=== PATIENT | male | born 1950 | race Asian ===

== ENCOUNTER 2023-09-06 06:40 | Inpatient (IN) | payer BC, MEDICARE ==
[2023-09-06] VITALS (13 sets, daily range): BP systolic 108–148; BP diastolic 48–75; PULSE 87–94; RESP 16–22; TEMP 98–98.4
[~2023-09-06] VITALS: Ht 162.6 cm; Wt 65.5 kg
[2023-09-06] MEDS: FUROSEMIDE 40 MG/4 ML VIAL IVP ONE (06:56)
[2023-09-06 07:00] LABS: BASOPHILS % (AUTO) 0.4 % (0.0-2.0); EOSINOPHILS % (AUTO) 1.3 % (1.0-6.0); HEMATOCRIT 25.3 % (41-53); HEMOGLOBIN 8.2 g/dL (13.5-17.5); LYMPHOCYTES # (AUTO) 1.4 K/uL (1.0-4.8); LYMPHOCYTES % (AUTO) 10.2 % (22.0-44.0); MEAN CORPUSCULAR HEMOGLOBIN 33.6 pg (26.0-34.0); MEAN CORPUSCULAR HGB CONC 32.6 G/dL (31.0-37.0); MEAN CORPUSCULAR VOLUME 103 fL (80-100); MONOCYTES # (AUTO) 0.8 K/uL (0.1-1.0); MONOCYTES % (AUTO) 5.7 % (2.0-9.0); NEUTROPHILS # (AUTO) 11.2 K/uL (1.8-7.7); NEUTROPHILS % (AUTO) 82.4 % (40.0-70.0); PLATELET COUNT (AUTO) 224 K/uL (150-450); RED BLOOD CELL COUNT(AUTO) 2.45 MIL/uL (4.50-5.90); RED CELL DISTRIBUTION WIDTH 13.5 % (11.5-14.5); WHITE BLOOD COUNT (AUTO) 13.6 K/uL (4.5-11.0)
[2023-09-06 07:10] LABS: ANION GAP 15 mmol/L (8-16); CALCIUM, TOTAL 9.9 mg/dL (8.8-10.5); CARBON DIOXIDE 24 mmol/L (22-29); CHLORIDE 95 mmol/L (98-107); CREATININE 8.39 mg/dL (0.60-1.30); GLOMERULAR FILTR. RATE CALC 6 mL/min (>60); GLUCOSE,RANDOM 341 mg/dL (70-110); POTASSIUM 4.4 mmol/L (3.5-5.1); SODIUM SERUM 134 mmol/L (136-145); UREA NITROGEN, BLOOD 76 mg/dL (7-18)
[2023-09-06 07:20] LABS: TROPONIN I-HIGH SENSITIVITY 1087 ng/L (<76)
[2023-09-06] MEDS ORDERED: AMLO-258 PO (07:20)
[2023-09-06] MEDS ORDERED: SEVE800T38 PO (07:20)
[2023-09-06] MEDS ORDERED: GLIP5TAB97 PO (07:20)
[2023-09-06] MEDS ORDERED: ATOR40TA28 PO (07:20)
[2023-09-06] MEDS ORDERED: FOLI0.8T43 PO (07:20)
[2023-09-06] MEDS ORDERED: ASPI-1444 PO (07:20)
[2023-09-06] MEDS ORDERED: PANT-31 PO (07:20)
[2023-09-06] MEDS ORDERED: CARV12 PO (07:20)
[2023-09-06 07:21] LABS: ALANINE AMINOTRANSFERASE 28 U/L (12-78); ALBUMIN 3.6 g/dL (3.4-5.0); ALKALINE PHOSPHATASE 91 U/L (46-116); ASPARTATE AMINOTRANSFERASE 20 U/L (15-37); B-TYPE NATRIURETIC PEPTIDE 2490 pg/mL (0-100); BILIRUBIN,TOTAL 0.3 mg/dL (0.1-1.0); LIPASE 73 U/L (16-77); TOTAL PROTEIN, SERUM 7.3 g/dL (6.4-8.2)
[2023-09-06 07:31] LABS: LACTIC ACID 2.8 mmol/L (0.4-2.0)
[2023-09-06 07:39] LABS: RBC MORPHOLOGY COMMENT ABNORMAL RBC MORPH
[2023-09-06] MEDS: ASPIRIN 325 MG TABLET PO ONE (07:39)
[2023-09-06 09:37] LABS: TROPONIN I-HIGH SENSITIVITY 1096 ng/L (<76)
[2023-09-06] MEDS: OXYGEN THERAPY IH SCH (09:56)
[2023-09-06] MEDS ORDERED: ZOLPIDEM TARTRATE 5 MG TABLET PO PRN (12:00)
[2023-09-06] MEDS ORDERED: MAGNESIUM HYDROXIDE SUSPENSION 30 ML UDCUP PO PRN (12:00)
[2023-09-06] MEDS ORDERED: MORPHINE SULFATE 2 MG/ML SYRINGE IVP PRN (12:00)
[2023-09-06] MEDS ORDERED: IPRATROPIUM BROMIDE 0.5 MG/2.5 ML NEB SOLUTION NEB PRN (12:00)
[2023-09-06] MEDS ORDERED: ONDANSETRON HCL 4 MG/2 ML VIAL IVP PRN (12:00)
[2023-09-06] MEDS ORDERED: ALBUTEROL SULFATE 2.5 MG/0.5 ML NEB SOLUTION NEB PRN (12:00)
[2023-09-06] MEDS ORDERED: HYDROCODONE/ACETAMINOPHEN 5-325 MG TABLET PO PRN (12:00)
[2023-09-06] MEDS ORDERED: BISACODYL 10 MG RECTAL RECTAL SUPPOSITORY PR PRN (12:00)
[2023-09-06] MEDS ORDERED: ACETAMINOPHEN 325 MG TABLET PO PRN (12:00)
[2023-09-06] MEDS ORDERED: GLIP5TAB15 PO (12:13)
[2023-09-06] MEDS: SEVELAMER CARBONATE 800 MG TABLET PO SCH (14:26)
[2023-09-06] MEDS: AmLODIPine BESYLATE 10 MG TABLET PO SCH (14:26)
[2023-09-06] MEDS: EPOETIN ALFA 10,000 UNITS/ML VIAL SQ SCH (16:16)
[2023-09-06] MEDS: HEPARIN SODIUM,PORCINE 5,000 UNITS/ML VIAL SQ SCH (16:18)
[2023-09-06] MEDS: BUMETANIDE 0.25 MG/ML 4 ML VIAL IVP ONE (16:19)
[2023-09-06 17:22] LABS: GLUCOMETER DEV NAME(LOC) 5N.2C; GLUCOSE,POINT OF CARE 250 MG/DL (70-110)
[2023-09-06] MEDS: INSULIN LISPRO 100 UNITS/ML SQ PRN (17:58)
[2023-09-06] MEDS ORDERED: DEXTROSE 50%-WATER 25 GM/50 ML SYRINGE IVP PRN (18:00)
[2023-09-06 19:28] LABS: BASOPHILS % (AUTO) 0.3 % (0.0-2.0); EOSINOPHILS % (AUTO) 0.9 % (1.0-6.0); HEMATOCRIT 25.3 % (41-53); HEMOGLOBIN 8.4 g/dL (13.5-17.5); LYMPHOCYTES # (AUTO) 0.6 K/uL (1.0-4.8); LYMPHOCYTES % (AUTO) 5.3 % (22.0-44.0); MEAN CORPUSCULAR HEMOGLOBIN 33.9 pg (26.0-34.0); MEAN CORPUSCULAR HGB CONC 33.4 G/dL (31.0-37.0); MEAN CORPUSCULAR VOLUME 102 fL (80-100); MONOCYTES # (AUTO) 0.7 K/uL (0.1-1.0); NEUTROPHILS # (AUTO) 10.7 K/uL (1.8-7.7); PLATELET COUNT (AUTO) 221 K/uL (150-450); RED BLOOD CELL COUNT(AUTO) 2.49 MIL/uL (4.50-5.90); RED CELL DISTRIBUTION WIDTH 13.1 % (11.5-14.5); WHITE BLOOD COUNT (AUTO) 12.2 K/uL (4.5-11.0)
[2023-09-06 19:32] LABS: NEUTROPHILS % (AUTO) 87.5 % (40.0-70.0)
[2023-09-06 20:02] LABS: TROPONIN I-HIGH SENSITIVITY 1477 ng/L (<76)
[2023-09-06 20:05] LABS: GLUCOMETER DEV NAME(LOC) 5S.2C; GLUCOSE,POINT OF CARE 157 MG/DL (70-110)
[2023-09-06 20:06] LABS: RBC MORPHOLOGY COMMENT ABNORMAL RBC MORPH
[2023-09-06] MEDS: ATORVASTATIN CALCIUM 40 MG TABLET PO SCH (21:16)
[2023-09-06] MEDS: DOCUSATE SODIUM 100 MG CAPSULE PO SCH (21:16)
[2023-09-06] MEDS: CARVEDILOL 12.5 MG TABLET PO SCH (21:16)
[2023-09-06] MEDS ORDERED: HEPARIN SODIUM,PORCINE 5,000 UNITS/ML VIAL IVP PRN ×2 (21:30)
[2023-09-06 22:27] LABS: PROTHROMBIN TIME 10.3 SEC (9.4-11.6)
[2023-09-07] VITALS (25 sets, daily range): BP systolic 92–154; BP diastolic 46–82; PULSE 56–90; RESP 18–20; TEMP 98–98.3
[2023-09-07] MEDS: HEPARIN SODIUM 25000 UNITS/D5W 250 ML IV PRN (01:03)
[2023-09-07 01:36] LABS: GLUCOMETER DEV NAME(LOC) 5N.2C; GLUCOSE,POINT OF CARE 100 MG/DL (70-110)
[2023-09-07 06:02] LABS: GLUCOMETER DEV NAME(LOC) 5S.1B; GLUCOSE,POINT OF CARE 169 MG/DL (70-110)
[2023-09-07] MEDS ORDERED: PANTOPRAZOLE SODIUM 40 MG DR TABLET PO SCH (06:30)
[2023-09-07] MEDS ORDERED: GlipiZIDE 5 MG TABLET PO SCH (06:30)
[2023-09-07 06:54] LABS: BASOPHILS % (AUTO) 0.4 % (0.0-2.0); HEMATOCRIT 24.2 % (41-53); HEMOGLOBIN 8.1 g/dL (13.5-17.5); LYMPHOCYTES % (AUTO) 9.9 % (22.0-44.0); MEAN CORPUSCULAR HEMOGLOBIN 34.1 pg (26.0-34.0); MEAN CORPUSCULAR HGB CONC 33.3 G/dL (31.0-37.0); MEAN CORPUSCULAR VOLUME 103 fL (80-100); NEUTROPHILS # (AUTO) 7.5 K/uL (1.8-7.7); NEUTROPHILS % (AUTO) 77.7 % (40.0-70.0); PLATELET COUNT (AUTO) 213 K/uL (150-450); RED BLOOD CELL COUNT(AUTO) 2.36 MIL/uL (4.50-5.90); RED CELL DISTRIBUTION WIDTH 13.3 % (11.5-14.5); WHITE BLOOD COUNT (AUTO) 9.6 K/uL (4.5-11.0)
[2023-09-07 07:37] LABS: CALCIUM, TOTAL 9.4 mg/dL (8.8-10.5); CREATININE 4.74 mg/dL (0.60-1.30); POTASSIUM 3.3 mmol/L (3.5-5.1)
[2023-09-07 08:22] LABS: TROPONIN I-HIGH SENSITIVITY 1895 ng/L (<76)
[2023-09-07] MEDS: PERFLUTREN PROTEIN-A MICROSPHERES 0.22 MG/ML 3 ML VIAL IVP ONE (08:38)
[2023-09-07] MEDS: LOSARTAN POTASSIUM 25 MG TABLET PO SCH (09:16)
[2023-09-07] MEDS: FOLIC ACID/VIT B COMPLEX AND C TABLET PO SCH (09:16)
[2023-09-07] MEDS: ASPIRIN 81 MG DR TABLET PO SCH (09:17)
[2023-09-07] MEDS: PANTOPRAZOLE SODIUM 40 MG/VIAL IVP SCH (09:17)
[2023-09-07] MEDS ORDERED: SODIUM CHLORIDE 0.9% 1,000 ML ONE ×2 (09:22→09:23)
[2023-09-07 10:10] LABS: RBC MORPHOLOGY COMMENT ABNORMAL RBC MORPH
[2023-09-07 12:16] LABS: GLUCOMETER DEV NAME(LOC) 5S.1B; GLUCOSE,POINT OF CARE 183 MG/DL (70-110)
[2023-09-07] MEDS ORDERED: IOHEXOL 300 MG/ML 100 ML VIAL ONE (15:42)
[2023-09-07] MEDS ORDERED: HEPARIN SODIUM 1000 UNITS/NS 1,000 ML ONE (15:42)
[2023-09-07] MEDS ORDERED: VERAPAMIL HCL 2.5 MG/ML 2 ML VIAL ONE (15:42)
[2023-09-07] MEDS ORDERED: LIDOCAINE/PF 1% 30 ML VIAL ONE (15:42)
[2023-09-07] MEDS ORDERED: SODIUM BICARBONATE 50 MEQ/50 ML VIAL ONE (15:42)
[2023-09-07] MEDS ORDERED: FentaNYL CITRATE PF 100 MCG/2 ML VIAL ONE (16:42)
[2023-09-07] MEDS ORDERED: MIDAZOLAM HCL 2 MG/2 ML VIAL ONE (16:42)
[2023-09-07] MEDS: IOHEXOL 300 MG/ML 100 ML VIAL IARTER ONE (17:02)
[2023-09-07] MEDS: LIDOCAINE 1% 30 ML/SOD BICARB 8.4% 4 ML SQ ONE (17:02)
[2023-09-07] MEDS: HEPARIN SODIUM 1000 UNITS/NS 1,000 ML IARTER ONE (17:03)
[2023-09-07] MEDS: MIDAZOLAM HCL 2 MG/2 ML VIAL IVP ONE (17:03)
[2023-09-07] MEDS: FentaNYL CITRATE PF 100 MCG/2 ML VIAL IVP ONE (17:04)
[2023-09-07 18:26] LABS: GLUCOMETER DEV NAME(LOC) 5S.1B; GLUCOSE,POINT OF CARE 128 MG/DL (70-110)
[2023-09-07 23:42] LABS: GLUCOMETER DEV NAME(LOC) 5S.2C; GLUCOSE,POINT OF CARE 137 MG/DL (70-110)
[2023-09-08 03:59] VITALS: BP 113/54; PULSE 76; RESP 18; TEMP 98.2
[2023-09-08 07:06] LABS: GLUCOMETER DEV NAME(LOC) 5S.2C; GLUCOSE,POINT OF CARE 172 MG/DL (70-110)
[2023-09-08 07:16] LABS: CALCIUM, TOTAL 9.1 mg/dL (8.8-10.5); CREATININE 4.89 mg/dL (0.60-1.30); POTASSIUM 3.7 mmol/L (3.5-5.1)
[2023-09-08 07:29] LABS: TROPONIN I-HIGH SENSITIVITY 1840 ng/L (<76)
[2023-09-08 08:19] VITALS: BP 106/59; PULSE 74; RESP 18; TEMP 98
[2023-09-08 11:47] VITALS: BP 112/55; PULSE 79; RESP 18; TEMP 97.7
[2023-09-08 15:44] VITALS: BP 127/55; PULSE 81; RESP 18; TEMP 97.9
[2023-09-08 18:56] LABS: GLUCOMETER DEV NAME(LOC) 5S.1B; GLUCOSE,POINT OF CARE 221 MG/DL (70-110)
== END 2023-09-08 16:55 | disposition short-term general hospital (02) | DRG 280 ==
LOC: EMS 06:41 → AHU 07:30 → 5S 09:05
PROVIDERS: ADMIT Hospitalist; ATTEND Hospitalist
PROC: 5A1D70Z Performance of Urinary Filtration, Intermittent, Less than 6 Hours Per Day (ICD-10-PCS; principal; 2023-09-06)
PROC: 5A1D70Z Performance of Urinary Filtration, Intermittent, Less than 6 Hours Per Day (ICD-10-PCS; 2023-09-07)
PROC: 4A023N7 Measurement of Cardiac Sampling and Pressure, Left Heart, Percutaneous Approach (ICD-10-PCS; 2023-09-07)
PROC: B2151ZZ Fluoroscopy of Left Heart using Low Osmolar Contrast (ICD-10-PCS; 2023-09-07)
PROC: B2111ZZ Fluoroscopy of Multiple Coronary Arteries using Low Osmolar Contrast (ICD-10-PCS; 2023-09-07)
PROC: B41F1ZZ Fluoroscopy of Right Lower Extremity Arteries using Low Osmolar Contrast (ICD-10-PCS; 2023-09-07)
DX: I13.2 Hypertensive heart and chronic kidney disease with heart failure and with stage 5 chronic kidney disease, or end stage renal disease (principal); I21.4 Non-ST elevation (NSTEMI) myocardial infarction; I50.23 Acute on chronic systolic (congestive) heart failure; N18.6 End stage renal disease; E11.22 Type 2 diabetes mellitus with diabetic chronic kidney disease; D63.1 Anemia in chronic kidney disease; Z20.822 Contact with and (suspected) exposure to COVID-19; E78.5 Hyperlipidemia, unspecified; Z99.2 Dependence on renal dialysis; I25.10 Atherosclerotic heart disease of native coronary artery without angina pectoris; I25.5 Ischemic cardiomyopathy; E11.65 Type 2 diabetes mellitus with hyperglycemia
CPT/HCPCS: 71045; 80048; 80053; 82962; 83605; 83690; 83880; 84484; 85025; 85610; 85730; 87340; 90935; 93005; 93306; 99291; C8924; C9113; G0378; J0885; J1644; J1940; J2250; J3010; J3490; J7030; Q9967; 36415-L1; 36415-TC; Z7610

== ENCOUNTER 2025-01-25 07:29 | Inpatient (IN) | payer MEDICARE ==
[~2025-01-25] VITALS: Ht 167.6 cm; Wt 57.8 kg
[2025-01-25] VITALS (19 sets, daily range): BP systolic 93–133; BP diastolic 50–58; PULSE 56–89; RESP 18–20; TEMP 96.5–97.5; O2SAT 100
[~2025-01-25 07:29] MED LIST: AMLO-258 PO; ASPI-1444 PO; ATOR40TA28 PO; CARV12 PO; FOLI0.8T43 PO; GLIP5TAB15 PO; PANT-31 PO; SEVE800T39 PO
[2025-01-25] MEDS ORDERED: IOHEXOL 350 MG/ML 100 ML VIAL ONE ×2 (07:41→07:51)
[2025-01-25] MEDS ORDERED: SODIUM CHLORIDE 0.9% 100 ML ONE ×2 (07:41→07:51)
[2025-01-25] MEDS: CALCIUM GLUCONATE 100 MG/ML 10 ML IVP ONE (07:43)
[2025-01-25] MEDS ORDERED: NiCARDipine HCL 25 MG in SODIUM CHLORIDE 0.9% 240 ML IV PRN (07:45)
[2025-01-25] MEDS ORDERED: 0.9% SODIUM CHLORIDE 10 ML SYRINGE IVP ONE (07:51)
[2025-01-25 07:53] LABS: BASOPHILS % (AUTO) 0.2 % (0.0-2.0); EOSINOPHILS % (AUTO) 3.1 % (1.0-6.0); HEMATOCRIT 36.6 % (41-53); LYMPHOCYTES # (AUTO) 3.4 K/uL (1.0-4.8); LYMPHOCYTES % (AUTO) 33.3 % (22.0-44.0); MEAN CORPUSCULAR HEMOGLOBIN 32.7 pg (26.0-34.0); MEAN CORPUSCULAR HGB CONC 32.9 G/dL (31.0-37.0); MEAN CORPUSCULAR VOLUME 99 fL (80-100); MONOCYTES # (AUTO) 0.9 K/uL (0.1-1.0); MONOCYTES % (AUTO) 8.9 % (2.0-9.0); NEUTROPHILS # (AUTO) 5.5 K/uL (1.8-7.7); NEUTROPHILS % (AUTO) 54.5 % (40.0-70.0); PLATELET COUNT (AUTO) 246 K/uL (150-450); RED BLOOD CELL COUNT(AUTO) 3.69 MIL/uL (4.50-5.90); RED CELL DISTRIBUTION WIDTH 16.1 % (11.5-14.5); WHITE BLOOD COUNT (AUTO) 10.2 K/uL (4.5-11.0)
[2025-01-25 08:06] LABS: PROTHROMBIN TIME 10.5 SEC (9.4-11.6)
[2025-01-25 08:09] LABS: CREATININE 7.46 mg/dL (0.60-1.30); POTASSIUM 5.9 mmol/L (3.5-5.1)
[2025-01-25 08:14] LABS: ALBUMIN 3.7 g/dL (3.4-5.0); BILIRUBIN,TOTAL 0.7 mg/dL (0.1-1.0); TOTAL PROTEIN, SERUM 8.1 g/dL (6.4-8.2)
[2025-01-25 08:23] LABS: TROPONIN I-HIGH SENSITIVITY 659 ng/L (<76)
[2025-01-25 08:25] LABS: ALCOHOL, BLOOD (SERUM) < 3 mg/dL (0-10)
[2025-01-25 08:41] LABS: ABG BASE EXCESS -4.2 mmol/L (-2.0-3.0); ABG CARBOXYHEMOGLOBIN 0.4 % (0.5-1.5); ABG HCO3 21.3 mmol/L (21.0-28.0); ABG METHEMOGLOBIN 0.4 % (0.0-1.5); ABG OXYGEN CONTENT 16.4 mL/dL (15.0-23.0); ABG OXYGEN SATURATION 99.6 % (94.0-98.0); ABG OXYHEMOGLOBIN 98.8 % (94.0-98.0); ABG PCO2 39 mmHg (32.0-48.0); ABG PH 7.357 (7.350-7.450); ABG TOTAL HEMOGLOBIN 11.5 G/dL (13.5-17.5); PO2, ARTERIAL BG 190.2 mmHg (83.0-108.0); SOURCE, BLOOD GAS ARTERIAL; TEMPERATURE, FAHRENHEIT, BG 98.9 FAHREN (96.0-98.6)
[2025-01-25 08:42] LABS: ALLEN TEST, BLOOD GAS Positive; O2 DEVICE,BLOOD GAS VENTILATOR (ROOM AIR); PEEP,BG 5 cm H2O; SITE, BLOOD GAS LFT RADIAL; VT, ABG 450 ml
[2025-01-25] MEDS: PROPOFOL 1000 MG/ISO-OSM 100 ML IV PRN ×2 (08:57→14:20)
[2025-01-25 09:16] LABS: APPEARANCE,URINE CLEAR (CLEAR); BILIRUBIN,URINE NEGATIVE (NEGATIVE); COLOR,URINE LIGHT YELLOW (YELLOW); GLUCOSE, URINE (UA) TRACE mg/dL (NEGATIVE); KETONES,URINE NEGATIVE (NEGATIVE); LEUKOCYTE ESTERASE ,URINE NEGATIVE (NEGATIVE); NITRATE,URINE NEGATIVE (NEGATIVE); OCCULT BLOOD,URINE TRACE (NEGATIVE); PROTEIN,URINE 100-200,SEE CONFIRM mg/dL (NEGATIVE); UROBILINOGEN,URINE <=1.0 mg/dL (<=1.0)
[2025-01-25 09:21] LABS: AMPHET/METH SCREEN,URINE NEGATIVE (NEGATIVE); BARBITURATE SCREEN, URINE NEGATIVE (NEGATIVE); BENZODIAZEPINES SCREEN,URINE NEGATIVE (NEGATIVE); CANNABINOID SCREEN,URINE NEGATIVE (NEGATIVE); COCAINE SCREEN,URINE NEGATIVE (NEGATIVE); METHADONE SCREEN, URINE NEGATIVE (NEGATIVE); OPIATE SCREEN,URINE NEGATIVE (NEGATIVE); PHENCYCLIDINE SCREEN,URINE NEGATIVE (NEGATIVE)
[2025-01-25 09:23] LABS: ALCOHOL, URINE DRUG SCREEN NEGATIVE (NEGATIVE)
[2025-01-25 09:41] LABS: RBC,URINE 0-2 /HPF (0-2); SULFOSALICYLIC ACID,URINE 2+ (Negative)
[2025-01-25 09:42] LABS: BACTERIA,URINE None Seen /HPF (None Seen); WBC,URINE None Seen /HPF (0-5)
[2025-01-25] MEDS ORDERED: BISACODYL 10 MG RECTAL RECTAL SUPPOSITORY PR PRN (09:45)
[2025-01-25] MEDS ORDERED: ONDANSETRON HCL 4 MG/2 ML VIAL IVP PRN (09:45)
[2025-01-25] MEDS ORDERED: ACETAMINOPHEN 325 MG TABLET PO PRN (09:45)
[2025-01-25] MEDS: PIPERACILLIN/TAZO 3.375 GM/D5W 50 ML IV ONE (10:41)
[2025-01-25] MEDS: ATORVASTATIN CALCIUM 40 MG TABLET NG SCH (10:41)
[2025-01-25] MEDS: AmLODIPine BESYLATE 5 MG TABLET NG SCH (10:41)
[2025-01-25] MEDS: ASPIRIN 81 MG CHEWABLE TABLET NG SCH (10:41)
[2025-01-25] MEDS: carvediloL 12.5 MG TABLET PEG SCH (10:43)
[2025-01-25] MEDS ORDERED: GLIP2.5T28 PO (11:15)
[2025-01-25] MEDS ORDERED: ATOR20TA65 PO (11:15)
[2025-01-25] MEDS ORDERED: LINA5TAB PO (11:15)
[2025-01-25] MEDS ORDERED: CLOP75TA32 PO (11:15)
[2025-01-25] MEDS ORDERED: ISOS10TA16 PO (11:15)
[2025-01-25] MEDS ORDERED: METO-408 PO (11:15)
[2025-01-25 11:47] LABS: TROPONIN I-HIGH SENSITIVITY 665 ng/L (<76)
[2025-01-25] MEDS: FentaNYL CIT 1000MCG/0.9% NACL 100 ML IV PRN (12:06)
[2025-01-25 14:21] LABS: TROPONIN I-HIGH SENSITIVITY 710 ng/L (<76)
[2025-01-25 16:30] LABS: GLUCOMETER DEV NAME(LOC) ICUN.5; GLUCOSE,POINT OF CARE 169 MG/DL (70-110)
[2025-01-25] MEDS ORDERED: SODIUM CHLORIDE 0.9% 250 ML IV ONE ×2 (17:12→18:31)
[2025-01-25] MEDS: PIPERACILLIN SODIUM/TAZOBACTAM 2.25 GM in DEXTROSE 5%-WATER 50 ML IV SCH (17:13)
[2025-01-25 17:21] LABS: GLUCOMETER DEV NAME(LOC) ICU.S6; GLUCOSE,POINT OF CARE 104 MG/DL (70-110)
[2025-01-25 20:16] LABS: TROPONIN I-HIGH SENSITIVITY 619 ng/L (<76)
[2025-01-25] MEDS: ETHYL ALCOHOL 62% ANTISEPTIC NASAL SANITIZER 0.6 ML AMPUL NASAL SCH (21:32)
[2025-01-25] MEDS: DOCUSATE SODIUM 100 MG/10 ML LIQUID UDCUP NG SCH (21:32)
[2025-01-25] MEDS: CHLORHEXIDINE GLUCONATE 2% TOWELETTE [2'S/6'S] TP SCH (21:33)
[2025-01-25 21:56] LABS: GLUCOMETER DEV NAME(LOC) ICUN.5; GLUCOSE,POINT OF CARE 80 MG/DL (70-110)
[2025-01-26] VITALS (10 sets, daily range): BP systolic 86–119; BP diastolic 46–58; PULSE 67–78; RESP 12–18; TEMP 97–99.5; O2SAT 100
[2025-01-26] MEDS: HEPARIN SODIUM,PORCINE 5,000 UNITS/ML VIAL SQ SCH (00:01)
[2025-01-26] MEDS: DEXTROSE 50%-WATER 25 GM/50 ML SYRINGE IVP PRN (00:25)
[2025-01-26 01:26] LABS: GLUCOMETER DEV NAME(LOC) ICUN.5; GLUCOSE,POINT OF CARE 65 MG/DL (70-110)
[2025-01-26 01:26] LABS: GLUCOMETER DEV NAME(LOC) ICUN.5; GLUCOSE,POINT OF CARE 142 MG/DL (70-110)
[2025-01-26] MEDS: NOREPINEPHRINE 8 MG/0.9 % NACL 250 ML IV PRN (04:38)
[2025-01-26 05:55] LABS: GLUCOMETER DEV NAME(LOC) ICUN.5; GLUCOSE,POINT OF CARE 71 MG/DL (70-110)
[2025-01-26 05:56] LABS: BASOPHILS % (AUTO) 0.9 % (0.0-2.0); EOSINOPHILS % (AUTO) 3.4 % (1.0-6.0); HEMATOCRIT 36.8 % (41-53); HEMOGLOBIN 12.2 g/dL (13.5-17.5); LYMPHOCYTES # (AUTO) 0.8 K/uL (1.0-4.8); LYMPHOCYTES % (AUTO) 11.9 % (22.0-44.0); MEAN CORPUSCULAR HEMOGLOBIN 33.1 pg (26.0-34.0); MEAN CORPUSCULAR HGB CONC 33.2 G/dL (31.0-37.0); MEAN CORPUSCULAR VOLUME 100 fL (80-100); MONOCYTES # (AUTO) 0.9 K/uL (0.1-1.0); MONOCYTES % (AUTO) 12.9 % (2.0-9.0); NEUTROPHILS % (AUTO) 70.9 % (40.0-70.0); PLATELET COUNT (AUTO) 164 K/uL (150-450); RED BLOOD CELL COUNT(AUTO) 3.69 MIL/uL (4.50-5.90); RED CELL DISTRIBUTION WIDTH 15.7 % (11.5-14.5); WHITE BLOOD COUNT (AUTO) 7.1 K/uL (4.5-11.0)
[2025-01-26 06:11] LABS: ALBUMIN 3.2 g/dL (3.4-5.0); BILIRUBIN,TOTAL 1.3 mg/dL (0.1-1.0); CALCIUM, TOTAL 9.4 mg/dL (8.8-10.5); CREATININE 4.52 mg/dL (0.60-1.30); MAGNESIUM 2.3 mg/dL (1.80-2.40); POTASSIUM 5.2 mmol/L (3.5-5.1); TOTAL PROTEIN, SERUM 7.7 g/dL (6.4-8.2)
[2025-01-26] MEDS: PANTOPRAZOLE SODIUM 40 MG/VIAL IVP SCH (08:10)
[2025-01-26] MEDS: SODIUM ZIRCONIUM CYCLOSILICATE 10 GM POWDER PACKET PO ONE (10:44)
[2025-01-26] MEDS: DEXMEDETOMIDINE 400 MCG/NS 100 ML IV PRN (12:44)
[2025-01-26] MEDS ORDERED: ALBUMIN HUMAN 25%-12.5GM/50ML IV BOTTLE IV ONE (16:53)
[2025-01-26 17:05] LABS: ABG BASE EXCESS -1.3 mmol/L (-2.0-3.0); ABG CARBOXYHEMOGLOBIN 0.4 % (0.5-1.5); ABG HCO3 23.6 mmol/L (21.0-28.0); ABG OXYGEN CONTENT 16.3 mL/dL (15.0-23.0); ABG OXYGEN SATURATION 98.7 % (94.0-98.0); ABG OXYHEMOGLOBIN 98.3 % (94.0-98.0); ABG PCO2 40 mmHg (32.0-48.0); ABG PH 7.392 (7.350-7.450); ABG TOTAL HEMOGLOBIN 11.6 G/dL (13.5-17.5); PO2, ARTERIAL BG 138.9 mmHg (83.0-108.0); SOURCE, BLOOD GAS ARTERIAL; TEMPERATURE, FAHRENHEIT, BG 99.5 FAHREN (96.0-98.6)
[2025-01-26 17:06] LABS: ABG A-A DIFF O2 63.8 mmHg (10-20.0); ALLEN TEST, BLOOD GAS Positive; O2 DEVICE,BLOOD GAS VENTILATOR (ROOM AIR); SITE, BLOOD GAS LFT RADIAL; VT, ABG 450 ml
[2025-01-26 17:07] LABS: PEEP,BG 0 cm H2O; PRESSURE SUPPORT, BG 8 cm H2O
[2025-01-26 19:06] LABS: GLUCOMETER DEV NAME(LOC) ICU.S6; GLUCOSE,POINT OF CARE 118 MG/DL (70-110)
[2025-01-27] VITALS (15 sets, daily range): BP systolic 104–150; BP diastolic 45–60; PULSE 74–91; RESP 8–20; TEMP 97.3–98.8; O2SAT 95–100
[2025-01-27 01:31] LABS: GLUCOMETER DEV NAME(LOC) ICUN.5; GLUCOSE,POINT OF CARE 136 MG/DL (70-110)
[2025-01-27 05:53] LABS: BASOPHILS % (AUTO) 0.2 % (0.0-2.0); HEMATOCRIT 34.6 % (41-53); HEMOGLOBIN 11.4 g/dL (13.5-17.5); LYMPHOCYTES # (AUTO) 0.9 K/uL (1.0-4.8); LYMPHOCYTES % (AUTO) 8.4 % (22.0-44.0); MEAN CORPUSCULAR HEMOGLOBIN 32.7 pg (26.0-34.0); MEAN CORPUSCULAR HGB CONC 32.9 G/dL (31.0-37.0); MEAN CORPUSCULAR VOLUME 99 fL (80-100); MONOCYTES # (AUTO) 1.1 K/uL (0.1-1.0); MONOCYTES % (AUTO) 10.3 % (2.0-9.0); NEUTROPHILS # (AUTO) 8.7 K/uL (1.8-7.7); NEUTROPHILS % (AUTO) 79.1 % (40.0-70.0); PLATELET COUNT (AUTO) 157 K/uL (150-450); RED BLOOD CELL COUNT(AUTO) 3.48 MIL/uL (4.50-5.90); RED CELL DISTRIBUTION WIDTH 15.9 % (11.5-14.5)
[2025-01-27 05:54] LABS: ALBUMIN 2.7 g/dL (3.4-5.0); BILIRUBIN,TOTAL 1.3 mg/dL (0.1-1.0); CALCIUM, TOTAL 9.4 mg/dL (8.8-10.5); CREATININE 5.84 mg/dL (0.60-1.30); MAGNESIUM 2.3 mg/dL (1.80-2.40); POTASSIUM 5.7 mmol/L (3.5-5.1); TOTAL PROTEIN, SERUM 6.9 g/dL (6.4-8.2)
[2025-01-27 08:06] LABS: GLUCOMETER DEV NAME(LOC) ICU.S6; GLUCOSE,POINT OF CARE 104 MG/DL (70-110)
[2025-01-27 13:11] LABS: GLUCOMETER DEV NAME(LOC) ICUN.5; GLUCOSE,POINT OF CARE 104 MG/DL (70-110)
[2025-01-27 18:00] LABS: GLUCOMETER DEV NAME(LOC) ICUN.5; GLUCOSE,POINT OF CARE 94 MG/DL (70-110)
[2025-01-27] MEDS: INSULIN LISPRO 100 UNITS/ML SQ PRN (21:08)
[2025-01-27 21:20] LABS: GLUCOMETER DEV NAME(LOC) ICUN.5; GLUCOSE,POINT OF CARE 266 MG/DL (70-110)
[2025-01-28] VITALS: BP 99/42; PULSE 83; RESP 14; TEMP 99.4; O2SAT 94
[2025-01-28 04:00] VITALS: BP 110/49; PULSE 78; RESP 15; TEMP 98.6; O2SAT 97
[2025-01-28 05:54] LABS: BASOPHILS % (AUTO) 0.4 % (0.0-2.0); EOSINOPHILS % (AUTO) 2.6 % (1.0-6.0); HEMOGLOBIN 11.1 g/dL (13.5-17.5); LYMPHOCYTES # (AUTO) 0.7 K/uL (1.0-4.8); MEAN CORPUSCULAR HEMOGLOBIN 33.1 pg (26.0-34.0); MEAN CORPUSCULAR HGB CONC 33.5 G/dL (31.0-37.0); MEAN CORPUSCULAR VOLUME 99 fL (80-100); MONOCYTES # (AUTO) 0.8 K/uL (0.1-1.0); MONOCYTES % (AUTO) 12.8 % (2.0-9.0); NEUTROPHILS # (AUTO) 4.6 K/uL (1.8-7.7); NEUTROPHILS % (AUTO) 73.2 % (40.0-70.0); PLATELET COUNT (AUTO) 162 K/uL (150-450); RED BLOOD CELL COUNT(AUTO) 3.34 MIL/uL (4.50-5.90); RED CELL DISTRIBUTION WIDTH 15.8 % (11.5-14.5); WHITE BLOOD COUNT (AUTO) 6.3 K/uL (4.5-11.0)
[2025-01-28 06:03] LABS: ALBUMIN 2.7 g/dL (3.4-5.0); BILIRUBIN,TOTAL 1.1 mg/dL (0.1-1.0); CALCIUM, TOTAL 9.2 mg/dL (8.8-10.5); CREATININE 4.44 mg/dL (0.60-1.30); MAGNESIUM 2.2 mg/dL (1.80-2.40); PHOSPHORUS 6.6 mg/dL (2.5-4.9); POTASSIUM 4.1 mmol/L (3.5-5.1); TOTAL PROTEIN, SERUM 6.6 g/dL (6.4-8.2)
[2025-01-28 08:00] VITALS: BP 111/51; PULSE 79; RESP 20; TEMP 97.9; O2SAT 96
[2025-01-28] MEDS: DOCUSATE SODIUM 100 MG CAPSULE PO SCH (08:36)
[2025-01-28] MEDS: SPIRONOLACTONE 25 MG TABLET PO SCH (09:34)
[2025-01-28] MEDS: LOSARTAN POTASSIUM 25 MG TABLET PO SCH (09:34)
[2025-01-28] MEDS ORDERED: SODIUM CHLORIDE 0.9% 250 ML IV ONE (09:35)
[2025-01-28 09:56] LABS: GLUCOMETER DEV NAME(LOC) ICUN.5; GLUCOSE,POINT OF CARE 118 MG/DL (70-110)
[2025-01-28 12:00] VITALS: BP 101/64; PULSE 77; PULSE 79; RESP 15; TEMP 97.9; O2SAT 96
[2025-01-28 13:16] LABS: GLUCOMETER DEV NAME(LOC) ICU.S6; GLUCOSE,POINT OF CARE 231 MG/DL (70-110)
[2025-01-28 16:00] VITALS: BP 111/48; PULSE 74; RESP 13; TEMP 98.8; O2SAT 97
[2025-01-28 18:31] LABS: GLUCOMETER DEV NAME(LOC) ICU.S6; GLUCOSE,POINT OF CARE 203 MG/DL (70-110)
[2025-01-28 20:00] VITALS: BP 120/55; PULSE 76; RESP 12; TEMP 97.4; O2SAT 98
[2025-01-28 21:16] LABS: GLUCOMETER DEV NAME(LOC) ICU.S6; GLUCOSE,POINT OF CARE 147 MG/DL (70-110)
[2025-01-29] VITALS: BP 116/49; PULSE 73; RESP 19; TEMP 97.2; O2SAT 99
[2025-01-29 01:15] VITALS: BP 126/58; PULSE 72; RESP 17; TEMP 98.4; O2SAT 99
[2025-01-29] MEDS ORDERED: SODIUM CHLORIDE 0.9% 250 ML IV ONE (01:27)
[2025-01-29 06:13] VITALS: BP 108/53; PULSE 73; RESP 18; TEMP 98.6; O2SAT 97
[2025-01-29 06:52] LABS: BASOPHILS % (AUTO) 0.5 % (0.0-2.0); EOSINOPHILS % (AUTO) 3.4 % (1.0-6.0); LYMPHOCYTES # (AUTO) 1.1 K/uL (1.0-4.8); MEAN CORPUSCULAR HEMOGLOBIN 32.8 pg (26.0-34.0); MEAN CORPUSCULAR HGB CONC 33.3 G/dL (31.0-37.0); MEAN CORPUSCULAR VOLUME 99 fL (80-100); MONOCYTES # (AUTO) 0.8 K/uL (0.1-1.0); MONOCYTES % (AUTO) 14.1 % (2.0-9.0); NEUTROPHILS # (AUTO) 3.8 K/uL (1.8-7.7); PLATELET COUNT (AUTO) 165 K/uL (150-450); RED BLOOD CELL COUNT(AUTO) 3.35 MIL/uL (4.50-5.90); RED CELL DISTRIBUTION WIDTH 15.2 % (11.5-14.5)
[2025-01-29 07:07] LABS: CALCIUM, TOTAL 9.4 mg/dL (8.8-10.5); CREATININE 5.95 mg/dL (0.60-1.30); POTASSIUM 4.1 mmol/L (3.5-5.1)
[2025-01-29 07:11] LABS: GLUCOMETER DEV NAME(LOC) 5S.2D; GLUCOSE,POINT OF CARE 143 MG/DL (70-110)
[2025-01-29 07:13] LABS: MAGNESIUM 2.4 mg/dL (1.80-2.40)
[2025-01-29 07:17] VITALS: BP 118/54; PULSE 70; RESP 18; TEMP 98; O2SAT 98
[2025-01-29 11:25] VITALS: BP 105/46; PULSE 76; RESP 18; TEMP 98; O2SAT 98
== END 2025-01-29 15:25 | disposition short-term general hospital (02) | DRG 208 ==
LOC: EMS 07:34 → EDH 09:37 → ICU 11:31 → 5S 01-29 00:45
PROVIDERS: ADMIT Internal Medicine; ATTEND Internal Medicine
PROC: 5A1945Z Respiratory Ventilation, 24-96 Consecutive Hours (ICD-10-PCS; principal; 2025-01-25)
PROC: 0BH17EZ Insertion of Endotracheal Airway into Trachea, Via Natural or Artificial Opening (ICD-10-PCS; 2025-01-25)
PROC: 5A1D70Z Performance of Urinary Filtration, Intermittent, Less than 6 Hours Per Day (ICD-10-PCS; 2025-01-25)
PROC: 5A1D70Z Performance of Urinary Filtration, Intermittent, Less than 6 Hours Per Day (ICD-10-PCS; 2025-01-27)
PROC: 5A1D70Z Performance of Urinary Filtration, Intermittent, Less than 6 Hours Per Day (ICD-10-PCS; 2025-01-29)
DX: J96.01 Acute respiratory failure with hypoxia (principal); J69.0 Pneumonitis due to inhalation of food and vomit; N18.6 End stage renal disease; I50.23 Acute on chronic systolic (congestive) heart failure; G93.41 Metabolic encephalopathy; I13.2 Hypertensive heart and chronic kidney disease with heart failure and with stage 5 chronic kidney disease, or end stage renal disease; I16.1 Hypertensive emergency; Z99.11 Dependence on respirator [ventilator] status; E87.20 Acidosis, unspecified; E11.22 Type 2 diabetes mellitus with diabetic chronic kidney disease; K44.9 Diaphragmatic hernia without obstruction or gangrene; K76.89 Other specified diseases of liver; N28.1 Cyst of kidney, acquired; I35.0 Nonrheumatic aortic (valve) stenosis; I67.9 Cerebrovascular disease, unspecified; D63.1 Anemia in chronic kidney disease; E87.5 Hyperkalemia; E78.5 Hyperlipidemia, unspecified; I25.5 Ischemic cardiomyopathy; I65.23 Occlusion and stenosis of bilateral carotid arteries; R91.1 Solitary pulmonary nodule; I25.10 Atherosclerotic heart disease of native coronary artery without angina pectoris; Z79.899 Other long term (current) drug therapy; Z86.73 Personal history of transient ischemic attack (TIA), and cerebral infarction without residual deficits; Z91.199 Patient's noncompliance with other medical treatment and regimen due to unspecified reason; Z95.1 Presence of aortocoronary bypass graft; Z99.2 Dependence on renal dialysis; Z79.82 Long term (current) use of aspirin; Z79.02 Long term (current) use of antithrombotics/antiplatelets
CPT/HCPCS: 31500; 70496; 70498; 71045; 71250; 80048; 80053; 80307; 81001; 81002; 82140; 82805; 82948; 82962; 83735; 84100; 84132; 84484; 85025; 85610; 85730; 86850; 86900; 86901; 87081; 87340; 90935; 93005; 93306; 94002; 94003; 97116; 97162; 99291; G0480; J0610; J1644; J2470; J2543; J2704; J3010; J3490; J7050; J7060; P9047; 36415-L1; 36415-TC; 70450; 70450-TC